=== PATIENT | female | born 1960 | race Asian ===

== ENCOUNTER 2019-03-04 09:18 | Day surgery (SDC) | payer OTHER ==
[2019-03-04] MEDS ORDERED: MIDAZOLAM 1 MG/ML 2 ML INJ ×3 (11:23→11:24)
[2019-03-04] MEDS ORDERED: FENTAnyl 50 MCG/ML VIAL (11:24)
== END 2019-03-04 13:30 | disposition home or self-care (01) ==
LOC: GIL 09:18
DX: Z12.11 Encounter for screening for malignant neoplasm of colon (principal); K64.8 Other hemorrhoids; I10 Essential (primary) hypertension
CPT/HCPCS: 45378